=== PATIENT | male | born 1975 | race Two or more races ===

== ENCOUNTER 2019-05-15 15:40 | Inpatient (IN) | payer MEDICARE, MEDICAID ==
[~2019-05-15] VITALS: Ht 167.6 cm; Wt 65.8 kg
[2019-05-15] MEDS ORDERED: UNOBMED (15:49)
[2019-05-15 15:50] VITALS: BP 129/61
--- NOTE | 2019-05-15 15:50 | NUR ---
ED Nurse Note: pt presents to ED c/o 05/10 lower abd pain that pt reports is worse in the RLQ. pt goes to dialysis every M, W, F and states that he has had no complications completing the procedures. pt reports having a fever of 103.2 yesterday at his 's office. pt reports the pain happening last PM with N/V, pt is unsure how many episodes of vomiting he had. Pt has had a total gastrectomy and jeny. pt is writhing in pain but able to maintain airway and breathing. lung sounds sound clear in all solares and bowel sounds are present in all 4 quadrants Addendum: 05/15/19 at 1635 by JUNG pt reports clear/yellow fluid when he vomits and that he takes dilaudid daily.
--- NOTE | 2019-05-15 16:00 | NUR ---
ED Nurse Note: pt is also c/o R hand pain without any injury to it. pt states that he usually takes 300 mg of gabapentin for it but that it hasn't helped with the pain.
--- NOTE | 2019-05-15 16:10 | NUR ---
ED Nurse Note: ERMCynthia Jain inserted a 20 gauage R EJ IV on pt. pt tolerated procedure well, line is patent and secured
[2019-05-15] MEDS ORDERED: Omnipaque-300 100ml vial INJ PRN (16:15)
[2019-05-15] MEDS ORDERED: HYDROmorphone 1mg/ml Carpuject IVP ONE ×2 (16:15→18:30)
--- NOTE | 2019-05-15 16:20 | Emergency Room Report ---
History of Present Illness General Chief Complaint: Abdominal Pain Source: Patient Present Illness HPI Disclaimer: Please note that this report is being documented using [email or web address] technology. This can lead to erroneous entry secondary to incorrect interpretation by the dictating instrument. HPI: 44-year-old male with history of ESRD on hemodialysis MWF, gastroparesis status post partial gastrectomy presents for evaluation of abdominal pain. Patient states he has had several episodes of persistent postprandial emesis starting yesterday afternoon. He has felt fevers and chills and had a temperature of 103 degrees at his PMDs office earlier today. He was sent over for evaluation. He is reporting lower quadrant pain that is periumbilical, suprapubic and right lower quadrant. Denies any recent diarrhea. Makes a small amount of urine but denies hematuria or dysuria. Denies flank pain. Denies chest pain, shortness of breath or cough. PMH: ESRD, gastroparesis PSH: Cholecystectomy, partial gastrectomy Allergies: Morphine Social Hx: Denies drug or alcohol abuse Allergies: Coded Allergies: MORPHINE (Verified Allergy, Unknown, 05/15/19) Nursing Documentation-PMH Hx Cardiac Problems: No - MWF dialysis Hx Hypertension: Yes Review of Systems All Other Systems: negative except mentioned in HPI Physical Exam Vital Signs Date Time Temp Pulse Resp B/P (MAP) Pulse Ox O2 Delivery O2 Flow Rate FiO2 05/15/19 15:44 99.9 95 18 129/61 (83) 98 Room Air General: Awake and alert, appears uncomfortable HEENT: NC/AT. EOMI. Neck: Supple, trachea midline Chest Wall: No tenderness, no deformity Cardiovascular: RRR. S1 and S2 normal. No murmur appreciated. Fistula with palpable thrill in the right thigh Resp: Normal work of breathing. No cough, wheezing or crackles appreciated Abdomen: Abdomen is soft, nondistended. There is tenderness in the periumbilical region, suprapubic region, right lower quadrant. No rebound. No masses. Upper quadrants and epigastrium are nontender. Skin: Intact. No abrasions, laceration or rash over the exposed skin MSK: Normal tone and bulk. Moving all extremities. No obvious deformity. Neuro: Awake and alert. Mentating appropriately. Medical Decision Making Diagnostic Impression: Primary Impression: Constipation Additional Impressions: Persistent vomiting Colitis ER Course 44-year-old male presents for evaluation of fevers and abdominal pain with vomiting beginning last night. Differential includes but is not limited to appendicitis, bowel obstruction, pancreatitis, gastroenteritis, gastritis, inflammatory bowel disease, urinary tract infection, pyelonephritis. Patient is uncomfortable appearing. He had hemodialysis yesterday and completed a full course. Will require IV contrast and oral contrast given his bowel altering surgery. Biggest concern is for appendicitis at this point. We will start broad metabolic and infectious work-up. Laboratory Tests Test 05/15/19 16:27 05/15/19 16:40 White Blood Count 5.4 K/UL (4.8-10.8) Red Blood Count 3.92 M/UL (4.70-6.10) L Hemoglobin 11.1 G/DL (14.2-18.0) L Hematocrit 35.3 % (42.0-52.0) L Mean Corpuscular Volume 90 FL (80-99) Mean Corpuscular Hemoglobin 28.3 PG (27.0-31.0) Mean Corpuscular Hemoglobin Concent 31.4 G/DL (32.0-36.0) L Red Cell Distribution Width 14.3 % (11.6-14.8) Platelet Count 162 K/UL (150-450) Mean Platelet Volume 6.6 FL (6.5-10.1) Neutrophils (%) (Auto) 82.4 % (45.0-75.0) H Lymphocytes (%) (Auto) 9.2 % (20.0-45.0) L Monocytes (%) (Auto) 4.9 % (1.0-10.0) Eosinophils (%) (Auto) 2.5 % (0.0-3.0) Basophils (%) (Auto) 1.0 % (0.0-2.0) Prothrombin Time 11.6 SEC (9.30-11.50) H Prothrombin Time INR 1.1 (0.9-1.1) PTT 32 SEC (23-33) Sodium Level 138 MMOL/L (136-145) Potassium Level 5.4 MMOL/L (3.5-5.1) H Chloride Level 99 MMOL/L (98-107) Carbon Dioxide Level 28 MMOL/L (21-32) Anion Gap 11 mmol/L (5-15) Blood Urea Nitrogen 34 mg/dL (7-18) H Creatinine 6.4 MG/DL (0.55-1.30) H Estimate Glomerular Filtration Rate 9.5 mL/min (>60) Glucose Level 218 MG/DL (74-106) H Calcium Level 7.4 MG/DL (8.5-10.1) L Total Bilirubin 0.7 MG/DL (0.2-1.0) Aspartate Amino Transferase (AST) 32 U/L (15-37) Alanine Aminotransferase (ALT) 24 U/L (12-78) Alkaline Phosphatase 219 U/L (46-116) H Total Protein 7.8 G/DL (6.4-8.2) Albumin 3.0 G/DL (3.4-5.0) L Globulin 4.8 g/dL Albumin/Globulin Ratio 0.6 (1.0-2.7) L Lipase 19 U/L (73-393) L Lactic Acid Level 1.30 mmol/L (0.4-2.0) EKG Diagnostic Results EKG Time: 17:48 Rate: tachycardiac ST Segments: no acute changes Other Impression Sinus tachycardia, normal axis, slightly long QTC at 482 ms. RSR prime pattern consistent with right bundle branch block. No prior for comparison Rhythm Strip Diag. Results Rhythm Strip Time: 17:48 EP Interpretation: yes Rate: 100s Rhythm: NSR, no PVC's, no ectopy CT/MRI/US Diagnostic Results CT/MRI/US Diagnostic Results : Impression Preliminary Findings Only See Final Report For Complete Findings CT ABDOMEN & PELVIS With Contrast: Large amount of stool in the rectum with some mild infiltration suspected of the perirectal fat. Stercoral colitis should be considered. Fluid is seen in the more proximal colon. Question of some wall thickening of the bladder. Cystitis cannot be excluded. Correlation with clinical and laboratory findings is recommended. No free intraperitoneal fluid or free intraperitoneal gas. Probable mild atelectasis at the lung bases. Evaluation of the bowel is limited secondary to no by mouth contrast and secondary to minimal intraperitoneal fat. No evidence for significant bowel loop dilation. Extensive vascular atherosclerotic calcifications. Some nonspecific periportal edema is suspected. Biliary stents are noted. Status post cholecystectomy. There is some prominence of the spleen. The pancreas is not well-visualized and is likely atrophic. Small low-density lesions in the kidneys which are too small to adequately characterize. The intra-abdominal organs are otherwise unremarkable. Status post surgical changes of the stomach. Degenerative changes of the thoracolumbar spine. Some sclerosis is suspected of the bones which may be related to renal osteodystrophy. Multiple collateral vessels in the subcutaneous tissues along the anterior aspect of the abdomen. Radiologist: Angelo Sheffield M.D. Reevaluation Time: 20:28 Last Vital Signs Date Time Temp Pulse Resp B/P (MAP) Pulse Ox O2 Delivery O2 Flow Rate FiO2 05/15/19 15:44 99.9 95 18 129/61 (83) 98 Room Air Status: unchanged Reevaluation Impression Patient has had persistent episodes of vomiting while in the emergency department despite IV fluids and antiemetics. His CT scan shows significant stool burden and signs of colitis which could represent overflow diarrhea. There is no evidence of bowel loop dilation to suggest acute obstruction. No evidence of acute appendicitis. Patient will require bowel cleanout, continued IV fluids and further treatment and management of his vomiting. He has had several episodes of diarrhea while in the emergency department as well. He will be admitted to the hospital for further treatment. Disposition: ADMITTED INPATIENT Condition: Serious Ki Jain MD May 15, 2019 16:20
[2019-05-15 16:56] VITALS: BP 160/86
[2019-05-15 16:59] VITALS: BP 119/60
[2019-05-15 17:02] LABS: EOSINOPHILS % (AUTO) 2.5 % (0.0-3.0); HEMATOCRIT 35.3 % (42.0-52.0); HEMOGLOBIN 11.1 G/DL (14.2-18.0); LYMPHOCYTES % (AUTO) 9.2 % (20.0-45.0); MEAN CORPUSCULAR VOLUME 90 FL (80-99); MONOCYTES % (AUTO) 4.9 % (1.0-10.0); NEUTROPHILS % (AUTO) 82.4 % (45.0-75.0); PLATELET COUNT 162 K/UL (150-450); RED BLOOD COUNT 3.92 M/UL (4.70-6.10); RED CELL DISTRIBUTION WIDTH 14.3 % (11.6-14.8); WHITE BLOOD COUNT 5.4 K/UL (4.8-10.8)
[2019-05-15 17:03] LABS: INR 1.1 (0.9-1.1)
[2019-05-15 17:07] LABS: ANION GAP 11 mmol/L (5-15); BLOOD UREA NITROGEN 34 mg/dL (7-18); CALCIUM 7.4 MG/DL (8.5-10.1); CARBON DIOXIDE 28 MMOL/L (21-32); CHLORIDE 99 MMOL/L (98-107); CREATININE 6.4 MG/DL (0.55-1.30); POTASSIUM 5.4 MMOL/L (3.5-5.1); SODIUM 138 MMOL/L (136-145)
[2019-05-15 17:11] LABS: ALANINE AMINOTRANSFERASE 24 U/L (12-78); ALBUMIN/GLOBULIN RATIO 0.6 (1.0-2.7); ALKALINE PHOSPHATASE 219 U/L (46-116); ASPARTATE AMINO TRANSFERASE 32 U/L (15-37); BILIRUBIN,TOTAL 0.7 MG/DL (0.2-1.0)
--- NOTE | 2019-05-15 17:30 | NUR ---
ED Nurse Note: pt transported to CT via gurney. he is in no acute distress and appears to be stable
--- NOTE | 2019-05-15 18:18 | NUR ---
ED Nurse Note: pt has returned from CT. his vital signs are HR: 97, RR: 18, SpO2: 99%, BP: 116/55. pt reports his nausea and pain are back, will let ERMD know
--- NOTE | 2019-05-15 18:33 | NUR ---
ED Nurse Note: pt had one episode of vomiting 5 minutes after administration of ondansetron and dilaudid. it appeared to be food. pt asked to use the restroom for a BM which is his second time since being in the ED. pt is using the bedside commode
--- NOTE | 2019-05-15 19:20 | NUR ---
ED Nurse Note: Got report from FRANCISCO Hein. Patient has right EJ on place, but it does not work. Right EJ was DC and left upper chest IV access was established.
--- NOTE | 2019-05-15 19:44 | Diagnostic Imaging Report ---
Clinical Indication: Lower abdominal pain worse in the right lower quadrant, fever, nausea vomiting Technique: No oral contrast utilized, per emergency room physician request IV administration nonionic contrast. Venous phase spiral acquisition obtained through the abdomen and pelvis. Multiplanar reconstructions were generated. Total dose length product 902 mGycm. CTDIvol(s) 15 mGy. Dose reduction achieved using automated exposure control Comparison: none Findings: The rectum is distended with stool, measures 7.3 cm transverse diameter. There is mild proximal rectal wall thickening. The sigmoid colon is mildly distended with stool, demonstrates mild wall thickening and absence of normal haustration. The proximal sigmoid is fluid-filled. The remainder of the colon is upper limits of normal in caliber, gas and fluid-filled. The appendix is normal. No small bowel distention. A extensive postsurgical changes of the stomach are noted, with evidence of distal gastrectomy and gastrojejunostomy. In the distal esophagus is unremarkable. There is a small amount of free intraperitoneal fluid over the dome of the liver. There is no evidence of diverticulosis or diverticulitis. There is evidence of prior cholecystectomy. Parallel plastic stents are seen within the common bile duct. There is mild periportal edema. The liver, spleen, adrenals are unremarkable. The kidneys are somewhat atrophic and hypoperfused. No retroperitoneal or mesenteric mass or adenopathy. No pelvic mass or adenopathy. The bladder wall is somewhat thickened A stent is seen within the right external iliac vein. It appears to be patent. Numerous superficial collateral veins are noted in the abdominal and pelvic wall and lower chest wall. The included lung bases demonstrate nodular and groundglass opacities. The bones demonstrate diffuse increased medullary attenuation. Impression: Distended stool-filled rectum, concerning for rectal fecal impaction. Stool filled featureless sigmoid colon, could indicate colitis/proctitis. But filled proximal colon, could indicate diarrheal illness Mild bladder wall thickening, could indicate cystitis Post surgical changes of the stomach Endobiliary stents. No definite ductal dilatation. Prior cholecystectomy Atrophic kidneys, consistent with medical renal disease Trace free intraperitoneal fluid. Evidence of prior stenting of the right iliac vein. This appears to be patent Chest and abdominal and pelvic wall varices, likely indicating central venoocclusive disease Basilar pulmonary parenchymal groundglass and nodular opacities, nonspecific, could indicate focal infiltrates. Correlate with clinical findings Periportal edema, nonspecific, could indicate right heart failure or hepatitis Osteosclerosis, likely on the basis of renal osteodystrophy This agrees with the preliminary interpretation provided overnight by [facility] teleradiology service. The CT scanner at [facility] is accredited by the [employer] and the scans are performed using protocols designed to limit radiation exposure to as low as reasonably achievable to attain images of sufficient resolution adequate for diagnostic evaluation.
[2019-05-15] MEDS ORDERED: Metoclopramide 10mg/2ml Inj IVP ONE (20:00)
[2019-05-15] MEDS ORDERED: DiphenhydrAMINE 50mg/ml Inj IVP ONE (20:00)
--- NOTE | 2019-05-15 21:30 | NUR ---
ED Nurse Note: REPORT GIVEN TO RN QUOC FROM TELE.
--- NOTE | 2019-05-15 21:40 | NUR ---
NURSE NOTES: Received report from Jeet Daugherty RN. regarding patient's arrival to TELE floor from ED. Arrived via gurney and ambulated to bed with minimal assistance form staff. Belongings checked and noted, head to toe assessment initiated with noted Right knee wound. IV line intact and patent, on continuous cardiac monitoring per protocol. Patient ambulates to the bathroom with minimal assistance. Safety precaution in place; siderails X2 up, call light within reach, bed in lowest position, brakes and alarm on at all times. Needs and wants anticipated and attended, will continue plan of care and monitor for any changes noted. MD notified regarding patient's arrival on the floor. Awaiting call-back for admit orders
[2019-05-15 21:49] VITALS: BP 119/60
--- NOTE | 2019-05-15 21:49 | NUR ---
ED Nurse Note: Patient was admited to Tele due to severe abdominal pain, N/V/D. Patient was transfered to the unit via girney by ACLS protocol, with all belongings. Patient AAO x4, VSS at this time, skin is warm to touch.
[2019-05-15 22:00] VITALS: BP 101/59
[2019-05-15] MEDS ORDERED: DILAUDID 22 MG/1 M2 IJ (23:12)
[2019-05-15] MEDS ORDERED: CATAPRES0.1 MG ORAL (23:12)
[2019-05-15] MEDS ORDERED: CALCIUM ACETAT667 M1 PO (23:12)
[2019-05-15] MEDS ORDERED: SENSIPAR30 MG ORAL (23:12)
[2019-05-15] MEDS ORDERED: NOVOLIN R100 UNIT/1 SUBQ (23:12)
[2019-05-15] MEDS ORDERED: METOPROLOL TAR100 M1 ORAL (23:12)
[2019-05-15] MEDS ORDERED: BENADRYL25 MG ORAL (23:12)
[2019-05-16] VITALS: BP 113/61
--- NOTE | 2019-05-16 01:30 | NUR ---
NURSE NOTES: Orders received and carried out per Al. . Will continue plan of care and monitor for any changes noted.
--- NOTE | 2019-05-16 02:47 | NUR ---
NURSE NOTES: Patient in bed asleep with no S/S of distress. Will continue plan of care.
[2019-05-16 04:00] VITALS: BP 138/76
[2019-05-16] MEDS: Calcium Acetate 667mg Tab ORAL SCH ×3 (06:26→15:14)
[2019-05-16] MEDS: NovoLOG Insulin Flexpen SUBQ SCH ×4 (06:31→20:43)
[2019-05-16] MEDS: HYDROmorphone 2mg tab ORAL PRN ×4 (06:52→20:42)
[2019-05-16] MEDS: DiphenhydrAMINE 50mg/ml Inj IVP PRN ×2 (06:53→11:03)
--- NOTE | 2019-05-16 07:46 | NUR ---
HAND-OFF: Report given to Armando Jernigan RN. Patient in bed AAO X4 with no S/S of distress. Endorsed plan of care. Al notified for N/V medication per patient request.
--- NOTE | 2019-05-16 07:46 | NUR ---
NURSE NOTES: Nurse report given by FRANCISCO Mason. Patient's eating breakfast at the side of the bed. Denies pain, denies nausea/vomiting, AO x 4, no s/s of distress or SOB. Bed low and locked, side rails x 2. IV is saline locked, patent and asymptomatic. Will continue to monitor.
[2019-05-16 08:00] VITALS: BP 151/71
[2019-05-16 08:49] LABS: BASOPHILS % (AUTO) 0.8 % (0.0-2.0); EOSINOPHILS % (AUTO) 3.2 % (0.0-3.0); HEMATOCRIT 31.1 % (42.0-52.0); HEMOGLOBIN 9.6 G/DL (14.2-18.0); LYMPHOCYTES % (AUTO) 15.4 % (20.0-45.0); MEAN CORPUSCULAR VOLUME 91 FL (80-99); MONOCYTES % (AUTO) 5.8 % (1.0-10.0); NEUTROPHILS % (AUTO) 74.8 % (45.0-75.0); PLATELET COUNT 160 K/UL (150-450); RED BLOOD COUNT 3.43 M/UL (4.70-6.10); RED CELL DISTRIBUTION WIDTH 15.4 % (11.6-14.8); WHITE BLOOD COUNT 6.6 K/UL (4.8-10.8)
[2019-05-16 09:13] LABS: ANION GAP 9 mmol/L (5-15); BLOOD UREA NITROGEN 44 mg/dL (7-18); CALCIUM 6.9 MG/DL (8.5-10.1); CARBON DIOXIDE 25 MMOL/L (21-32); CHLORIDE 101 MMOL/L (98-107); CREATININE 7.3 MG/DL (0.55-1.30); PHOSPHORUS 5.4 MG/DL (2.5-4.9); POTASSIUM 4.5 MMOL/L (3.5-5.1); SODIUM 135 MMOL/L (136-145)
--- NOTE | 2019-05-16 09:30 | NUR ---
*-* NO INSURANCE INFORMATION IN THE BAR UNABLE TO SEND CLINICALS OR REVIEWS *-*
--- NOTE | 2019-05-16 09:52 | NUR ---
NURSE NOTES: Left message to Dr. Melendez regarding about patient's dialysis status whether the patient's getting dialysis today or not. Nurse also updated doctor regarding patient's lab results. Awaiting for response.
--- NOTE | 2019-05-16 11:30 | NUR ---
NURSE NOTES: Contacted Dr. Hill Mccallum regarding to patient's rhythm strip that the patient's having multiple episodes of Trigeminy. Doctor acknowledge and there is no new order at this time.
--- NOTE | 2019-05-16 11:41 | Consultation ---
History of Present Illness General Date patient seen: May 16, 2019 Chief Complaint: Abdominal Pain Present Illness HPI 44-year-old male with history of DM, HTN, ESRD on hemodialysis MWF, status post partial gastrectomy with gastroparesis presented to ER with CC of abdominal pain and postprandial emesis starting yesterday afternoon. He has felt fevers and chills and had a temperature of 103 degrees. He is admitted for further management. Allergies: Coded Allergies: MORPHINE (Verified Allergy, Unknown, 05/15/19) Medication History Scheduled Calcium Acetate (Calcium Acetate), 667 MG PO DAILY, (Reported) Cinacalcet* (Sensipar*), 30 MG ORAL BID, (Reported) Clonidine Hcl* (Catapres*), 0.1 MG ORAL EVERY 6 HOURS, (Reported) Insulin Regular, Human* (Novolin R*), 0 SUBQ .SLIDING SCALE, (Reported) Metoprolol Tartrate* (Metoprolol Tartrate*), 100 MG ORAL DAILY, (Reported) Scheduled PRN Diphenhydramine Hcl* (Benadryl*), 50 MG ORAL Q6H PRN for Itching, (Reported) Miscellaneous Medications Hydromorphone HCl/Pf (Dilaudid 2 mg/ml Syringe), 2 MG IJ, (Reported) Unable to Obtain Medications (Unable To Obtain Meds), (Reported) Patient History Healthcare decision maker Resuscitation status Full Code Advanced Directive on File Past Medical/Surgical History Past Medical/Surgical History: (1) Diabetes mellitus (2) History of hypertension (3) ESRF (end stage renal failure) (4) S/P partial gastrectomy Review of Systems All Other Systems: negative except mentioned in HPI Physical Exam General Appearance: WD/WN, no apparent distress Lines, tubes and drains: peripheral HEENT: normocephalic, atraumatic Neck: non-tender, normal alignment Respiratory/Chest: chest wall non-tender, lungs clear Breasts: no masses Cardiovascular/Chest: normal peripheral pulses Abdomen: normal bowel sounds, non tender Genitourinary/Rectal: normal genital exam, normal rectal exam Extremities: normal range of motion, non-tender Skin Exam: normal pigmentation 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 Last 24 Hour Vital Signs Date Time Temp Pulse Resp B/P (MAP) Pulse Ox O2 Delivery O2 Flow Rate FiO2 05/16/19 09:23 79 151/71 05/16/19 09:00 Room Air 05/16/19 08:00 98.7 79 20 151/71 (97) 98 05/16/19 08:00 79 05/16/19 04:00 72 05/16/19 04:00 98.3 72 20 138/76 (96) 97 05/16/19 00:00 74 05/16/19 00:00 98.5 86 18 113/61 (78) 97 05/15/19 23:15 Room Air 05/15/19 22:00 99.1 84 18 101/59 (73) 98 05/15/19 22:00 81 05/15/19 21:49 99.9 20 119/60 92 Room Air 05/15/19 21:49 99.9 20 119/60 92 Room Air 05/15/19 18:56 99.9 05/15/19 16:59 119/60 05/15/19 16:56 99.9 20 160/86 92 Room Air 05/15/19 16:50 99.9 05/15/19 15:50 95 18 Room Air 05/15/19 15:50 99.9 18 129/61 98 Room Air 05/15/19 15:44 99.9 95 18 129/61 (83) 98 Room Air Intake and Output 05/15/19 05/16/19 18:59 06:59 Intake Total 240 ml Balance 240 ml Intake Oral 240 ml # Voids 2 # Bowel Movements 2 2 Laboratory Tests Test 05/15/19 16:27 05/15/19 16:40 05/16/19 08:25 White Blood Count 5.4 K/UL (4.8-10.8) 6.6 K/UL (4.8-10.8) Red Blood Count 3.92 M/UL (4.70-6.10) L 3.43 M/UL (4.70-6.10) L Hemoglobin 11.1 G/DL (14.2-18.0) L 9.6 G/DL (14.2-18.0) L Hematocrit 35.3 % (42.0-52.0) L 31.1 % (42.0-52.0) L Mean Corpuscular Volume 90 FL (80-99) 91 FL (80-99) Mean Corpuscular Hemoglobin 28.3 PG (27.0-31.0) 28.0 PG (27.0-31.0) Mean Corpuscular Hemoglobin Concent 31.4 G/DL (32.0-36.0) L 30.9 G/DL (32.0-36.0) L Red Cell Distribution Width 14.3 % (11.6-14.8) 15.4 % (11.6-14.8) H Platelet Count 162 K/UL (150-450) 160 K/UL (150-450) Mean Platelet Volume 6.6 FL (6.5-10.1) 5.9 FL (6.5-10.1) L Neutrophils (%) (Auto) 82.4 % (45.0-75.0) H 74.8 % (45.0-75.0) Lymphocytes (%) (Auto) 9.2 % (20.0-45.0) L 15.4 % (20.0-45.0) L Monocytes (%) (Auto) 4.9 % (1.0-10.0) 5.8 % (1.0-10.0) Eosinophils (%) (Auto) 2.5 % (0.0-3.0) 3.2 % (0.0-3.0) H Basophils (%) (Auto) 1.0 % (0.0-2.0) 0.8 % (0.0-2.0) Prothrombin Time 11.6 SEC (9.30-11.50) H Prothromb Time International Ratio 1.1 (0.9-1.1) Activated Partial Thromboplast Time 32 SEC (23-33) Sodium Level 138 MMOL/L (136-145) 135 MMOL/L (136-145) L Potassium Level 5.4 MMOL/L (3.5-5.1) H 4.5 MMOL/L (3.5-5.1) Chloride Level 99 MMOL/L (98-107) 101 MMOL/L (98-107) Carbon Dioxide Level 28 MMOL/L (21-32) 25 MMOL/L (21-32) Anion Gap 11 mmol/L (5-15) 9 mmol/L (5-15) Blood Urea Nitrogen 34 mg/dL (7-18) H 44 mg/dL (7-18) H Creatinine 6.4 MG/DL (0.55-1.30) H 7.3 MG/DL (0.55-1.30) H Estimat Glomerular Filtration Rate 9.5 mL/min (>60) 8.1 mL/min (>60) Glucose Level 218 MG/DL (74-106) H 141 MG/DL (74-106) H Calcium Level 7.4 MG/DL (8.5-10.1) L 6.9 MG/DL (8.5-10.1) L Total Bilirubin 0.7 MG/DL (0.2-1.0) Aspartate Amino Transf (AST/SGOT) 32 U/L (15-37) Alanine Aminotransferase (ALT/SGPT) 24 U/L (12-78) Alkaline Phosphatase 219 U/L (46-116) H Total Protein 7.8 G/DL (6.4-8.2) Albumin 3.0 G/DL (3.4-5.0) L Globulin 4.8 g/dL Albumin/Globulin Ratio 0.6 (1.0-2.7) L Lipase 19 U/L (73-393) L Lactic Acid Level 1.30 mmol/L (0.4-2.0) Phosphorus Level 5.4 MG/DL (2.5-4.9) H Magnesium Level 1.9 MG/DL (1.8-2.4) Microbiology Date/Time Source Procedure Growth Status 05/15/19 23:30 Rectum Received Height (Feet): 5 Height (Inches): 6.00 Weight (Pounds): 147 Medications Current Medications Medications (Trade) Dose Ordered Sig/Marie Route PRN Reason Start Time Stop Time Status Last Admin Dose Admin Calcium Acetate (Phoslo) 667 mg DAILY ORAL 05/17/19 09:00 06/16/19 08:59 UNV Calcium Acetate (Phoslo) 667 mg TIAC ORAL 05/16/19 06:30 06/15/19 06:29 05/16/19 11:02 Cinacalcet (Sensipar) 30 mg BID ORAL 05/16/19 18:00 06/15/19 17:59 UNV Clonidine HCl (Catapres Tab) 0.1 mg EVERY 6 HOURS ORAL 05/16/19 12:00 06/15/19 11:59 UNV Clonidine HCl (Catapres Tab) 0.1 mg Q4H PRN ORAL For High Blood Pressure 05/16/19 01:15 06/15/19 01:14 Dextrose (Dextrose 50%) 25 ml Q30M PRN IV Hypoglycemia 05/16/19 01:15 06/15/19 01:14 Dextrose (Dextrose 50%) 50 ml Q30M PRN IV Hypoglycemia 05/16/19 01:15 06/15/19 01:14 Diphenhydramine HCl (Benadryl) 25 mg Q4H PRN IVP Itching 05/16/19 01:15 06/15/19 01:14 05/16/19 11:03 Hydromorphone HCl (Dilaudid) 2 mg Q4H PRN ORAL For Pain 05/16/19 01:15 05/23/19 01:14 05/16/19 11:03 Insulin Aspart (NovoLOG) BEFORE MEALS AND HS SUBQ 05/16/19 06:30 06/15/19 06:29 05/16/19 06:31 Iohexol (OMNIPAQUE-300 100ml) 100 ml NOW PRN INJ Radiology Procedure 05/15/19 16:15 05/17/19 16:12 Metoprolol Tartrate (Lopressor) 100 mg DAILY ORAL 05/17/19 09:00 06/16/19 08:59 UNV Metoprolol Tartrate (Lopressor) 100 mg EVERY 12 HOURS ORAL 05/16/19 09:00 06/15/19 08:59 05/16/19 09:23 Ondansetron HCl (Zofran ODT) 4 mg Q4H PRN ORAL Nausea & Vomiting 05/16/19 08:30 06/15/19 08:29 Assessment/Plan Problem List: (1) Persistent vomiting ICD Codes: R11.15 - Cyclical vomiting syndrome unrelated to migraine SNOMED: 400625056 (2) Low grade fever ICD Codes: R50.9 - Fever, unspecified SNOMED: 247207952 (3) Colitis ICD Codes: K52.9 - Noninfective gastroenteritis and colitis, unspecified SNOMED: 14310933 (4) Constipation ICD Codes: K59.00 - Constipation, unspecified SNOMED: 66590768 (5) ESRF (end stage renal failure) ICD Codes: N18.6 - End stage renal disease SNOMED: 91586363 (6) Diabetes mellitus ICD Codes: E11.9 - Type 2 diabetes mellitus without complications SNOMED: 55717112 (7) History of hypertension ICD Codes: Z86.79 - Personal history of other diseases of the circulatory system SNOMED: 221600391 (8) S/P partial gastrectomy ICD Codes: Z90.3 - Acquired absence of stomach [part of] SNOMED: 67391068, 67102077, 261961377016903 Assessment/Plan: nichole cultures symptomatic treatment iv abx Renal to arrange for HD resume most of home meds monitor BP CT abdomen showed bibasilar pulmonary nodules,will get a CXR get Echo for abnormal EKG, cardiology to see Cristobal Ordonez MD May 16, 2019 11:41
[2019-05-16] MEDS ORDERED: Fleet's Mineral Oil Enema RECTAL SCH ×2 (11:45→12:45)
[2019-05-16 12:00] VITALS: BP 104/56
[2019-05-16] MEDS ORDERED: DiphenhydrAMINE 50mg/ml Inj IVP SCH (12:30)
[2019-05-16] MEDS ORDERED: Metoclopramide 10mg/2ml Inj IVP PRN (12:33)
[2019-05-16] MEDS ORDERED: Mineral Oil 30ml ud ORAL SCH (12:45)
[2019-05-16] MEDS ORDERED: DiphenhydrAMINE 50mg/ml Inj IVP PRN (12:45)
[2019-05-16] MEDS ORDERED: Mineral Oil 30ml ud ORAL PRN (12:45)
--- NOTE | 2019-05-16 12:47 | Consultation ---
Consult Note Consult Note asked to eval patient for dialysis management interviewed examined data reviewed patient being dialysed in [facility] Fr was visiting PMD Dr Melendez yesterday had fever, abd pain and vomiting send to ER ER: HPI: 44-year-old male with history of ESRD on hemodialysis MWF, gastroparesis status post partial gastrectomy presents for evaluation of abdominal pain. Patient states he has had several episodes of persistent postprandial emesis starting yesterday afternoon. He has felt fevers and chills and had a temperature of 103 degrees at his PMDs office earlier today. He was sent over for evaluation. He is reporting lower quadrant pain that is periumbilical, suprapubic and right lower quadrant. Denies any recent diarrhea. Makes a small amount of urine but denies hematuria or dysuria. Denies flank pain. Denies chest pain, shortness of breath or cough. PMH: ESRD, gastroparesis PSH: Cholecystectomy, partial gastrectomy Allergies: Morphine Social Hx: Denies drug or alcohol abuse Allergies: MORPHINE (Verified Allergy, Unknown, 05/15/19) Hx Cardiac Problems: No - MWF dialysis Hx Hypertension: Yes Assessment/Plan ESRD HTN DM Anemia HD today Per GI BP and BS check Chito Leal MD May 16, 2019 12:47
--- NOTE | 2019-05-16 13:26 | GI Initial Consult Note ---
History of Present Illness General Date patient seen: May 16, 2019 Time patient seen: 13:20 Reason for Hospitalization: Abdominal Pain Referring physician: VALERIO HAMILTON Reason for Consultation: FECAL IMPACATION Present Illness HPI 44-year-old male with history of ESRD on hemodialysis MWF, gastroparesis status post partial gastrectomy presents for evaluation of abdominal pain. Patient states he has had several episodes of persistent postprandial emesis starting yesterday afternoon. He has felt fevers and chills and had a temperature of 103 degrees at his PMDs office earlier today. He was sent over for evaluation. He is reporting lower quadrant pain that is periumbilical, suprapubic and right lower quadrant. Denies any recent diarrhea. Makes a small amount of urine but denies hematuria or dysuria. Denies flank pain. Denies chest pain, shortness of breath or cough. GI consulted for reported fecal impaction is seen on abdominal pelvic CT. Patient seen, awake alert oriented x4 no apparent distress. No active signs and symptoms of nausea vomiting. The patient previously reported constipation, however had a bowel movement this morning. Patient still express that he feels constipated. Patient has no history of endoscopic or colonoscopy. Labs reviewed; hemoglobin 9.6, hematocrit 31.1. Home Meds Reported Medications Insulin Regular, Human* (NOVOLIN R*) 100 Unit/1 Ml Vial, 0 SUBQ .SLIDING SCALE, UNITS 05/15/19 Hydromorphone HCl/Pf (Dilaudid 2 mg/ml Syringe) 2 Mg/1 Ml Syringe, 2 MG IJ 05/15/19 Cinacalcet* (SENSIPAR*) 30 Mg Tablet, 30 MG ORAL BID, TAB 05/15/19 Calcium Acetate (CALCIUM ACETATE) 667 Mg Capsule, 667 MG PO DAILY, CAP 05/15/19 Diphenhydramine Hcl* (BENADRYL*) 25 Mg Capsule, 50 MG ORAL Q6H PRN for Itching, CAP 05/15/19 Clonidine Hcl* (CATAPRES*) 0.1 Mg Tablet, 0.1 MG ORAL EVERY 6 HOURS, TAB 05/15/19 Metoprolol Tartrate* (METOPROLOL TARTRATE*) 100 Mg Tablet, 100 MG ORAL DAILY, TAB 05/15/19 Unable to Obtain Medications (UNABLE TO OBTAIN MEDS) 1 Ea Ea 05/15/19 Med list reviewed/reconciled: Yes Allergies: Coded Allergies: MORPHINE (Verified Allergy, Unknown, 05/15/19) Patient History History Provided By: Patient, Medical Record PMH Narrative PMH: ESRD, gastroparesis PSH: Cholecystectomy, partial gastrectomy Allergies: Morphine Social Hx: Denies drug or alcohol abuse Allergies: Coded Allergies: MORPHINE (Verified Allergy, Unknown, 05/15/19) Nursing Documentation-PMH Hx Cardiac Problems: No - MWF dialysis Hx Hypertension: Yes Social History: Denies: smoking, alcohol use, drug use, other Review of Systems All Other Systems: negative except mentioned in HPI Physical Exam Vital Signs Date Time Temp Pulse Resp B/P (MAP) Pulse Ox O2 Delivery O2 Flow Rate FiO2 05/15/19 15:44 99.9 95 18 129/61 (83) 98 Room Air Sp02 EP Interpretation: reviewed, normal Labs Laboratory Tests Test 05/15/19 16:27 05/15/19 16:40 05/16/19 08:25 White Blood Count 5.4 K/UL (4.8-10.8) 6.6 K/UL (4.8-10.8) Red Blood Count 3.92 M/UL (4.70-6.10) L 3.43 M/UL (4.70-6.10) L Hemoglobin 11.1 G/DL (14.2-18.0) L 9.6 G/DL (14.2-18.0) L Hematocrit 35.3 % (42.0-52.0) L 31.1 % (42.0-52.0) L Mean Corpuscular Volume 90 FL (80-99) 91 FL (80-99) Mean Corpuscular Hemoglobin 28.3 PG (27.0-31.0) 28.0 PG (27.0-31.0) Mean Corpuscular Hemoglobin Concent 31.4 G/DL (32.0-36.0) L 30.9 G/DL (32.0-36.0) L Red Cell Distribution Width 14.3 % (11.6-14.8) 15.4 % (11.6-14.8) H Platelet Count 162 K/UL (150-450) 160 K/UL (150-450) Mean Platelet Volume 6.6 FL (6.5-10.1) 5.9 FL (6.5-10.1) L Neutrophils (%) (Auto) 82.4 % (45.0-75.0) H 74.8 % (45.0-75.0) Lymphocytes (%) (Auto) 9.2 % (20.0-45.0) L 15.4 % (20.0-45.0) L Monocytes (%) (Auto) 4.9 % (1.0-10.0) 5.8 % (1.0-10.0) Eosinophils (%) (Auto) 2.5 % (0.0-3.0) 3.2 % (0.0-3.0) H Basophils (%) (Auto) 1.0 % (0.0-2.0) 0.8 % (0.0-2.0) Prothrombin Time 11.6 SEC (9.30-11.50) H Prothromb Time International Ratio 1.1 (0.9-1.1) Activated Partial Thromboplast Time 32 SEC (23-33) Sodium Level 138 MMOL/L (136-145) 135 MMOL/L (136-145) L Potassium Level 5.4 MMOL/L (3.5-5.1) H 4.5 MMOL/L (3.5-5.1) Chloride Level 99 MMOL/L (98-107) 101 MMOL/L (98-107) Carbon Dioxide Level 28 MMOL/L (21-32) 25 MMOL/L (21-32) Anion Gap 11 mmol/L (5-15) 9 mmol/L (5-15) Blood Urea Nitrogen 34 mg/dL (7-18) H 44 mg/dL (7-18) H Creatinine 6.4 MG/DL (0.55-1.30) H 7.3 MG/DL (0.55-1.30) H Estimat Glomerular Filtration Rate 9.5 mL/min (>60) 8.1 mL/min (>60) Glucose Level 218 MG/DL (74-106) H 141 MG/DL (74-106) H Calcium Level 7.4 MG/DL (8.5-10.1) L 6.9 MG/DL (8.5-10.1) L Total Bilirubin 0.7 MG/DL (0.2-1.0) Aspartate Amino Transf (AST/SGOT) 32 U/L (15-37) Alanine Aminotransferase (ALT/SGPT) 24 U/L (12-78) Alkaline Phosphatase 219 U/L (46-116) H Total Protein 7.8 G/DL (6.4-8.2) Albumin 3.0 G/DL (3.4-5.0) L Globulin 4.8 g/dL Albumin/Globulin Ratio 0.6 (1.0-2.7) L Lipase 19 U/L (73-393) L Lactic Acid Level 1.30 mmol/L (0.4-2.0) Phosphorus Level 5.4 MG/DL (2.5-4.9) H Magnesium Level 1.9 MG/DL (1.8-2.4) General Appearance: well appearing, no apparent distress, alert Head: normocephalic EENT: PERRL/EOMI, normal ENT inspection Neck: supple Respiratory: normal breath sounds, no respiratory distress Cardiovascular: normal rate Gastrointestinal: normal inspection, non tender, soft, normal bowel sounds, non -distended Rectal: deferred Genitourinary: deferred Musculoskeletal: normal inspection, back normal Neurologic: normal inspection, alert, oriented x3, responsive Psychiatric: normal inspection, judgement/insight normal, memory normal Skin: normal inspection, normal color, no rash, warm/dry, palpation normal, well hydrated Lymphatic: normal inspection, no adenopathy Current Medications Current Medications Medications (Trade) Dose Ordered Sig/Marie Route PRN Reason Start Time Stop Time Status Last Admin Dose Admin Calcium Acetate (Phoslo) 667 mg TIAC ORAL 05/16/19 06:30 06/15/19 06:29 05/16/19 11:02 Cinacalcet (Sensipar) 30 mg BID ORAL 05/16/19 18:00 06/15/19 17:59 Clonidine HCl (Catapres Tab) 0.1 mg EVERY 6 HOURS ORAL 05/16/19 18:00 06/15/19 11:59 Clonidine HCl (Catapres Tab) 0.1 mg Q4H PRN ORAL For High Blood Pressure 05/16/19 01:15 06/15/19 01:14 Dextrose (Dextrose 50%) 25 ml Q30M PRN IV Hypoglycemia 05/16/19 01:15 06/15/19 01:14 Dextrose (Dextrose 50%) 50 ml Q30M PRN IV Hypoglycemia 05/16/19 01:15 06/15/19 01:14 Diphenhydramine HCl (Benadryl) 25 mg Q4H PRN IVP Itching 05/16/19 01:15 06/15/19 01:14 05/16/19 11:03 Diphenhydramine HCl (Benadryl) 50 mg ONCE PRN IVP DURING HD WHEN PT REQUESTS 05/16/19 12:45 05/16/19 23:59 Hydromorphone HCl (Dilaudid) 2 mg Q4H PRN ORAL For Pain 05/16/19 01:15 05/23/19 01:14 05/16/19 11:03 Insulin Aspart (NovoLOG) BEFORE MEALS AND HS SUBQ 05/16/19 06:30 06/15/19 06:29 05/16/19 11:36 Iohexol (OMNIPAQUE-300 100ml) 100 ml NOW PRN INJ Radiology Procedure 05/15/19 16:15 05/17/19 16:12 Metoclopramide HCl (Reglan) 10 mg Q6H PRN IVP Nausea & Vomiting 05/16/19 12:33 06/15/19 12:32 Metoprolol Tartrate (Lopressor) 100 mg EVERY 12 HOURS ORAL 05/16/19 09:00 06/15/19 08:59 05/16/19 09:23 Mineral Oil (Fleet's Mineral Oil Enema) 133 ml ONCE RECTAL 05/16/19 12:45 05/16/19 14:00 05/16/19 13:02 Mineral Oil (Mineral Oil) 30 ml DAILYPRN PRN ORAL Constipation 05/16/19 12:45 06/15/19 12:44 Mineral Oil (Mineral Oil) 30 ml ONCE ORAL 05/16/19 12:45 05/16/19 14:00 05/16/19 13:02 GI: Plan Problems: (1) Gastroparesis (2) Fecal impaction (3) Constipation (4) Colitis (5) Persistent vomiting (6) Diabetes mellitus Plan Abdominal pelvis CT reviewed Distended stool-filled rectum, concerning for rectal fecal impaction. Stool filled featureless sigmoid colon, could indicate colitis/proctitis. But filled proximal colon, could indicate diarrheal illness. History of partial gastrectomy Medical management for constipation, digital disimpaction if failed. Mineral oil p.o. and enema x1 Start the patient on mineral oil daily Bowel regimen of Colace and MiraLAX Advance to renal diet Zofran as needed We will follow with additional recommendations Discussed with Dr. Lee. Thank you for this patient referral, we will follow. The patient was seen and examined at bedside and all new and available data was reviewed in the patients chart. I agree with the above findings, impression and plan. (Patient seen earlier today. Signature stamp does not reflect patient encounter time.). - MD Dipti [facility] [facility] May 16, 2019 13:26
--- NOTE | 2019-05-16 14:46 | Diagnostic Imaging Report ---
Indication: Dyspnea Technique: One view of the chest Comparison: none Findings: Surgical clips are seen in the left axilla. The lungs and pleural spaces are clear. The heart size is normal Impression: Negative
[2019-05-16 16:00] VITALS: BP 111/60
--- NOTE | 2019-05-16 16:42 | NUR ---
NURSE NOTES: Dialysis was performed on patient and removed 2 liters out. Patient's vital signs are stable and patient tolerated well. Will continue to monitor.
--- NOTE | 2019-05-16 17:00 | History and Physical Report ---
DATE OF ADMISSION: 05/15/2019 CHIEF COMPLAINT: The patient is a 44-year-old male with history of end-stage renal disease, on hemodialysis every Tuesday, Tuesday, Tuesday, presents with chief complaint of nausea, vomiting, abdominal pain, and fever. HISTORY OF PRESENT ILLNESS: It began on 05/15/2019. The patient had dialysis on 05/14/2019. The patient states he awoke on 05/15/2019 with right lower quadrant abdominal pain. The patient then began to experience nausea and vomiting. The patient states he vomited "several times." The patient denies hematemesis. The patient also complains of right hand pain and swelling. The patient presented to [place] emergency room. The patient is found to have fever of 103 degrees Fahrenheit. The patient was admitted with nausea, vomiting, and abdominal pain to rule out acute appendicitis. REVIEW OF SYSTEMS: CONSTITUTIONAL: The patient denies weight loss or weight gain. The patient complains of fever as above. HEENT: The patient denies ear or throat pain. The patient denies headache. CARDIOVASCULAR: The patient denies palpitations or chest pain. CHEST: The patient denies wheezes or shortness of breath. ABDOMEN: The patient complains of nausea, vomiting, and right lower quadrant abdominal pain as above. The patient denies constipation or diarrhea. GENITOURINARY: The patient denied dysuria or increased frequency of urination. NEUROMUSCULAR: The patient denies seizures or generalized weakness. PAST MEDICAL HISTORY: Significant for: 1. Diabetes, type 2. 2. End-stage renal disease, on hemodialysis every Tuesday, Tuesday, Tuesday. 3. Hypertension. 4. Gastroparesis. PAST SURGICAL HISTORY: Significant for: 1. Partial gastrectomy in 2011. 2. Laparoscopic cholecystectomy in 2009. 3. Nasal septal fracture repair. 4. AV graft for dialysis in the right femoral vein. 5. AV graft of the right femoral vein/artery for dialysis. CURRENT MEDICATIONS: 1. Calcium acetate 667 mg p.o. daily. 2. Sensipar 30 mg p.o. twice daily. 3. Clonidine 0.1 mg p.o. q.6 h. p.r.n. 4. Novolin sliding scale with regular insulin. 5. Metoprolol 100 mg p.o. daily. ALLERGIES: To morphine. SOCIAL HISTORY: The patient is single and lives with his adult daughter. The patient denies tobacco or alcohol use. PHYSICAL EXAMINATION: VITAL SIGNS: Temperature 99.9, respirations 18, pulse 95, blood pressure 129/61. GENERAL: The patient is a well-developed and well-nourished male, in no apparent distress. HEENT: Eyes, pupils are equal and responsive to light and accommodation. Extraocular movements are intact. NECK: Supple without lymphadenopathy. CHEST: Lungs are clear to auscultation bilaterally without wheezes or rales. CARDIOVASCULAR: Regular rhythm and rate. S1, S2 are normal without murmurs, rubs, or gallops. ABDOMEN: Soft, nontender, and nondistended. Positive bowel sounds. No evidence of hepatosplenomegaly. Currently, no rebound or guarding noted. EXTREMITIES: Negative for clubbing, cyanosis, or edema. RECTAL/GENITAL: Refused. NEUROLOGIC: Cranial nerves II through XII are grossly intact without focal deficits. Motor strength is 5/5 bilaterally. Deep tendon reflexes are 2+ plantar LABORATORY STUDIES: WBC 5.4, hemoglobin 11.9, hematocrit 35.3, platelets 162,000. Sodium 138, potassium 5.4, chloride 99, CO2 20, BUN 34, creatinine 6.4, glucose 218. A CT scan of the abdomen and pelvis revealed a distended stool-filled rectum consistent with fecal impaction. ASSESSMENT: This is a 44-year-old male. 1. Abdominal pain. 2. Nausea with vomiting. 3. Fever. 4. Fecal impaction. 5. Diabetes, type 2. 6. End-stage renal disease. 7. Hypertension. 8. Gastroparesis. TREATMENT: 1. Nausea/vomiting/abdominal pain/fecal impaction. A Gastroenterology consultation has been obtained with Dr. Chris Lee. We will follow recommendations of Gastroenterology. 2. Diabetes, type 2. NovoLog sliding scale has been instituted. 3. End-stage renal disease. The patient is status post dialysis on 05/14/2019. A Nephrology consultation has been obtained with Dr. Leal. We will follow recommendations of Nephrology. 4. Hypertension. 5. History of gastroparesis. Greg Kellogg, M.D. DR: COREY JOB#: [id number] CC:
[2019-05-16] MEDS: Sensipar 30mg Tab ORAL SCH (18:09)
[2019-05-16] MEDS: Docusate 100mg cap ORAL SCH (18:10)
--- NOTE | 2019-05-16 18:13 | NUR ---
NURSE NOTES: Held Clonidine for 1800 medication because patient's systolic pressure is 111.
--- NOTE | 2019-05-16 19:27 | NUR ---
HAND-OFF: Report given to FRANCISCO Mason. Plan of care endorsed. Patient's stable.
--- NOTE | 2019-05-16 19:32 | NUR ---
NURSE NOTES: Received report from Armando Jernigan RN. patient in bed AAO X 4 with no complaints of acute pain or discomfort noted. Kept clean, dry, and comfortable in bed. IV line intact and patent, on continuous cardiac monitoring per protocol. Patient ambulates to the bathroom with minimal assistance. Safety precaution in place; siderails X2 up, call light within reach, bed in lowest position, brakes and alarm on at all times. Needs and wants anticipated and attended, will continue plan of care and monitor for any changes noted. HD earlier today with 2L out New orders for stool softener active
[2019-05-16 20:00] VITALS: BP 140/70
[2019-05-16] MEDS ORDERED: Miralax 17gm pkt ORAL SCH (21:00)
[2019-05-17] VITALS: BP 126/66
[2019-05-17] MEDS: DiphenhydrAMINE 50mg/ml Inj IVP PRN ×3 (00:56→12:01)
[2019-05-17] MEDS: HYDROmorphone 2mg tab ORAL PRN ×3 (00:57→10:45)
--- NOTE | 2019-05-17 02:50 | NUR ---
HAND-OFF: Report given to Sp Birch RN. Patient in bed asleep with no S/S of distress noted. Endorsed plan of care.
--- NOTE | 2019-05-17 02:52 | NUR ---
Received report from Marlon SINGH. Pt is calm and comfortable. Pt is sleeping in the bed w.o any distress. Bed alarm is on. Call light is within reach.
[2019-05-17] MEDS: Calcium Acetate 667mg Tab ORAL SCH ×2 (06:22→12:01)
[2019-05-17] MEDS: NovoLOG Insulin Flexpen SUBQ SCH ×2 (06:27→12:03)
--- NOTE | 2019-05-17 07:12 | NUR ---
HAND-OFF: Report given to Hollie SINGH.
--- NOTE | 2019-05-17 07:14 | NUR ---
NURSE NOTES: Nurse report given by FRANCISCO Velasco. Patient's awake and ambulating. Complains of pain, Nurse jarek will give pain medication. Otherwise, no s/s of distress or SOB. IV is saline locked, patent and asymptomatic. All needs met. Bed low and locked, call light within reach, side rails x 2. Will continue to monitor.
[2019-05-17 08:00] VITALS: BP 126/55
[2019-05-17] MEDS: Sensipar 30mg Tab ORAL SCH (08:19)
[2019-05-17] MEDS: Docusate 100mg cap ORAL SCH (08:20)
[2019-05-17 08:36] LABS: BASOPHILS % (AUTO) 1.1 % (0.0-2.0); EOSINOPHILS % (AUTO) 4.5 % (0.0-3.0); HEMOGLOBIN 10.2 G/DL (14.2-18.0); LYMPHOCYTES % (AUTO) 22.2 % (20.0-45.0); MEAN CORPUSCULAR VOLUME 91 FL (80-99); MONOCYTES % (AUTO) 7.4 % (1.0-10.0); NEUTROPHILS % (AUTO) 64.9 % (45.0-75.0); PLATELET COUNT 181 K/UL (150-450); RED BLOOD COUNT 3.62 M/UL (4.70-6.10); WHITE BLOOD COUNT 5.5 K/UL (4.8-10.8)
[2019-05-17 08:56] LABS: ALANINE AMINOTRANSFERASE 16 U/L (12-78); ALBUMIN 2.7 G/DL (3.4-5.0); ALBUMIN/GLOBULIN RATIO 0.5 (1.0-2.7); ALKALINE PHOSPHATASE 199 U/L (46-116); ANION GAP 12 mmol/L (5-15); ASPARTATE AMINO TRANSFERASE 23 U/L (15-37); BILIRUBIN,TOTAL 0.7 MG/DL (0.2-1.0); BLOOD UREA NITROGEN 45 mg/dL (7-18); CALCIUM 7.4 MG/DL (8.5-10.1); CARBON DIOXIDE 26 MMOL/L (21-32); CHLORIDE 100 MMOL/L (98-107); CHOLESTEROL 98 MG/DL (< 200); CREATINE KINASE 95 U/L (26-308); CREATININE 6.5 MG/DL (0.55-1.30); FERRITIN 772 NG/ML (8-388); GAMMA GLUTAMYL TRANSPEPTIDASE 35 U/L (5-85); HDL CHOLESTEROL 46 MG/DL (40-60); POTASSIUM 4.6 MMOL/L (3.5-5.1); SODIUM 138 MMOL/L (136-145); TRIGLYCERIDES 83 MG/DL (30-150)
[2019-05-17] MEDS ORDERED: Calcium Acetate 667mg Tab ORAL SCH (09:00)
[2019-05-17 09:36] LABS: % IRON SATURATION 26 % (15-50); IRON 29 ug/dL (50-175); TOTAL IRON BINDING CAPACITY 112 ug/dL (250-450)
--- NOTE | 2019-05-17 10:00 | NUR ---
NURSE NOTES: Spoke to Lien from [facility] office to confirm patient's going to have dialysis tomorrow, Tuesday05/18/2019 at [facility] [place]. It is confirmed.
[2019-05-17 10:29] LABS: APPEARANCE,URINE SLIGHTLY CLOUDY; BILIRUBIN, URINE NEGATIVE (NEGATIVE); GLUCOSE, URINE (UA) 2+ (NEGATIVE); KETONES,URINE NEGATIVE (NEGATIVE); LEUKOCYTE ESTERASE ,URINE 3+ (NEGATIVE); NITRITE,URINE NEGATIVE (NEGATIVE); PH,URINE 7 (4.5-8.0); PROTEIN,URINE 4+ (NEGATIVE); UROBILINOGEN,URINE NORMAL MG/DL (0.0-1.0)
[2019-05-17 10:35] LABS: COLOR,URINE YELLOW
--- NOTE | 2019-05-17 10:49 | Pulmonology Progress Note ---
Assessment/Plan Problems: (1) Persistent vomiting (2) Low grade fever (3) Colitis (4) Constipation (5) ESRF (end stage renal failure) (6) Diabetes mellitus (7) History of hypertension (8) S/P partial gastrectomy Assessment/Plan improving eating well HD got yesterday, 2 liters removed. pt wants to go home today Subjective ROS Limited/Unobtainable: No Interval Events: eating well, asymptomatic Allergies: Coded Allergies: MORPHINE (Verified Allergy, Unknown, 05/15/19) Objective Last 24 Hour Vital Signs Date Time Temp Pulse Resp B/P (MAP) Pulse Ox O2 Delivery O2 Flow Rate FiO2 05/17/19 09:00 Room Air 05/17/19 08:20 66 126/55 05/17/19 08:00 97.2 66 20 126/55 (78) 99 05/17/19 08:00 71 05/17/19 06:22 126/71 05/17/19 04:00 73 05/17/19 00:00 126/66 05/17/19 00:00 98.0 76 20 126/66 (86) 97 05/16/19 21:00 Room Air 05/16/19 20:41 81 140/70 05/16/19 20:00 98.7 81 20 140/70 (93) 98 05/16/19 20:00 78 05/16/19 18:00 111/60 05/16/19 16:00 72 05/16/19 16:00 98.9 73 20 111/60 (77) 99 05/16/19 12:00 99.0 79 20 104/56 (72) 99 05/16/19 12:00 72 Intake and Output 05/16/19 05/17/19 18:59 06:59 Intake Total 780 ml 320 ml Balance 780 ml 320 ml Intake Oral 780 ml 320 ml # Voids 3 # Bowel Movements 1 General Appearance: WD/WN HEENT: normocephalic, atraumatic Respiratory/Chest: chest wall non-tender, lungs clear Cardiovascular: normal peripheral pulses, normal rate Abdomen: normal bowel sounds, soft, non tender Genitourinary: normal external genitalia Skin: no rash Neurologic/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 Lymphatic: no neck adenopathy Microbiology Date/Time Source Procedure Growth Status 05/15/19 23:30 Rectum Received Laboratory Tests 05/17/19 07:55: White Blood Count 5.5, Red Blood Count 3.62L, Hemoglobin 10.2L, Hematocrit 33.0L , Mean Corpuscular Volume 91, Mean Corpuscular Hemoglobin 28.1, Mean Corpuscular Hemoglobin Concent 30.9L, Red Cell Distribution Width 16.0H, Platelet Count 181, Mean Platelet Volume 6.5, Neutrophils (%) (Auto) 64.9, Lymphocytes (%) (Auto) 22.2, Monocytes (%) (Auto) 7.4, Eosinophils (%) (Auto) 4.5H, Basophils (%) (Auto) 1.1, Sodium Level 138, Potassium Level 4.6, Chloride Level 100, Carbon Dioxide Level 26, Anion Gap 12, Blood Urea Nitrogen 45H, Creatinine 6.5H, Estimat Glomerular Filtration Rate 9.3, Glucose Level 88, Hemoglobin A1c 6.7H, Uric Acid 3.3, Calcium Level 7.4L, Phosphorus Level 5.0H, Magnesium Level 2.2, Iron Level 29L, Total Iron Binding Capacity 112L, Percent Iron Saturation 26, Unsaturated Iron Binding 83L, Ferritin 772H, Total Bilirubin 0.7, Gamma Glutamyl Transpeptidase 35, Aspartate Amino Transf (AST/ SGOT) 23, Alanine Aminotransferase (ALT/SGPT) 16, Alkaline Phosphatase 199H, Total Creatine Kinase 95, C-Reactive Protein, Quantitative 16.4H, Pro-B-Type Natriuretic Peptide 17465F, Total Protein 7.7, Albumin 2.7L, Globulin 5.0, Albumin/Globulin Ratio 0.5L, Triglycerides Level 83, Cholesterol Level 98, LDL Cholesterol 40, HDL Cholesterol 46, Cholesterol/HDL Ratio 2.1L, Lipase 42L, Vitamin B12 Level 1090H, Folate 20.9, Thyroid Stimulating Hormone (TSH) 1.644 05/17/19 10:00: Urine Color Yellow, Urine Appearance Slightly cloudy, Urine pH 7, Urine Specific Ocate 1.010, Urine Protein 4+H, Urine Glucose (UA) 2+H, Urine Ketones Negative, Urine Blood 2+H, Urine Nitrite Negative, Urine Bilirubin Negative, Urine Urobilinogen Normal, Urine Leukocyte Esterase 3+H, Urine RBC 2- 4H, Urine WBC 40-60H, Urine Squamous Epithelial Cells Occasional, Urine Bacteria Occasional, Urine Opiates Screen [Pending], Urine Barbiturates Screen [ Pending], Phencyclidine (PCP) Screen [Pending], Urine Amphetamines Screen [ Pending], Urine Benzodiazepines Screen [Pending], Urine Cocaine Screen [Pending] , Urine Marijuana (THC) Screen [Pending] Current Medications Medications (Trade) Dose Ordered Sig/Marie Route PRN Reason Start Time Stop Time Status Last Admin Dose Admin Calcium Acetate (Phoslo) 667 mg TIAC ORAL 05/16/19 06:30 06/15/19 06:29 05/17/19 06:22 Cinacalcet (Sensipar) 30 mg BID ORAL 05/16/19 18:00 06/15/19 17:59 05/17/19 08:19 Clonidine HCl (Catapres Tab) 0.1 mg EVERY 6 HOURS ORAL 05/16/19 18:00 06/15/19 11:59 05/17/19 06:22 Clonidine HCl (Catapres Tab) 0.1 mg Q4H PRN ORAL For High Blood Pressure 05/16/19 01:15 06/15/19 01:14 Dextrose (Dextrose 50%) 25 ml Q30M PRN IV Hypoglycemia 05/16/19 01:15 06/15/19 01:14 Dextrose (Dextrose 50%) 50 ml Q30M PRN IV Hypoglycemia 05/16/19 01:15 06/15/19 01:14 Diphenhydramine HCl (Benadryl) 25 mg Q4H PRN IVP Itching 05/16/19 01:15 06/15/19 01:14 05/17/19 07:17 Docusate Sodium (Colace) 100 mg THREE TIMES A DAY ORAL 05/16/19 18:00 06/15/19 17:59 05/17/19 08:20 Hydromorphone HCl (Dilaudid) 2 mg Q4H PRN ORAL For Pain 05/16/19 01:15 05/23/19 01:14 05/17/19 10:45 Insulin Aspart (NovoLOG) BEFORE MEALS AND HS SUBQ 05/16/19 06:30 06/15/19 06:29 05/17/19 06:27 Iohexol (OMNIPAQUE-300 100ml) 100 ml NOW PRN INJ Radiology Procedure 05/15/19 16:15 05/17/19 16:12 Metoclopramide HCl (Reglan) 10 mg Q6H PRN IVP Nausea & Vomiting 05/16/19 12:33 06/15/19 12:32 Metoprolol Tartrate (Lopressor) 100 mg EVERY 12 HOURS ORAL 05/16/19 09:00 06/15/19 08:59 05/17/19 08:20 Mineral Oil (Mineral Oil) 30 ml DAILYPRN PRN ORAL Constipation 05/16/19 12:45 06/15/19 12:44 Polyethylene Glycol (Miralax) 17 gm BEDTIME ORAL 05/16/19 21:00 06/15/19 20:59 05/16/19 20:41 Cristobal Ordonez MD May 17, 2019 10:49
[2019-05-17 12:00] VITALS: BP 112/58
--- NOTE | 2019-05-17 13:00 | NUR ---
NURSE NOTES: Patient's discharged per Dr. Ordonez's order. Patient's in stable condition, ambulates with cane, AO x 4, denies pain, no s/s of distress or SOB. Patient's belonging list and discharge document went over with patient and signed by patient and nurse at bedside. space and missile operations spacelift and IV are removed, ID band discarded properly. Patient's mother picked patient up. Nurse walked patient out of the hospital at 1300. Charge nurse and cardiac cath lab radiology technologist aware.
--- NOTE | 2019-05-17 13:03 | GI Progress Note ---
Assessment/Plan Problems: (1) S/P partial gastrectomy ICD Codes: Z90.3 - Acquired absence of stomach [part of] SNOMED: 55744004, 88503620, 428351620304604 (2) Gastroparesis ICD Codes: K31.84 - Gastroparesis SNOMED: 509751920 (3) Fecal impaction ICD Codes: K56.41 - Fecal impaction SNOMED: 16490960 (4) Colitis ICD Codes: K52.9 - Noninfective gastroenteritis and colitis, unspecified SNOMED: 86109516 (5) Constipation ICD Codes: K59.00 - Constipation, unspecified SNOMED: 08909393 (6) Persistent vomiting ICD Codes: R11.15 - Cyclical vomiting syndrome unrelated to migraine SNOMED: 746313239 Status: stable Status Narrative Discussed with Dr. Lee. Assessment/Plan Abdominal pelvis CT reviewed Distended stool-filled rectum, concerning for rectal fecal impaction. Stool filled featureless sigmoid colon, could indicate colitis/proctitis. But filled proximal colon, could indicate diarrheal illness. History of partial gastrectomy patient had multiple BM okay for DC per GI standpoint Medical management for constipation Bowel regimen of Colace and MiraLAX Advance to renal diet Zofran as needed follow labs The patient was seen and examined at bedside and all new and available data was reviewed in the patients chart. I agree with the above findings, impression and plan. (Patient seen earlier today. Signature stamp does not reflect patient encounter time.). - Chris Lee MD Subjective Gastrointestinal/Abdominal: Reports: no symptoms Objective Last 24 Hour Vital Signs Date Time Temp Pulse Resp B/P (MAP) Pulse Ox O2 Delivery O2 Flow Rate FiO2 05/17/19 12:00 112/58 05/17/19 12:00 98.2 80 19 112/58 (76) 98 05/17/19 12:00 65 05/17/19 11:15 97.2 05/17/19 09:00 Room Air 05/17/19 08:20 66 126/55 05/17/19 08:00 97.2 66 20 126/55 (78) 99 05/17/19 08:00 71 05/17/19 06:22 126/71 05/17/19 04:00 73 05/17/19 00:00 126/66 10/17/19 00:00 98.0 76 20 126/66 (86) 97 05/16/19 21:00 Room Air 05/16/19 20:41 81 140/70 05/16/19 20:00 98.7 81 20 140/70 (93) 98 05/16/19 20:00 78 05/16/19 18:00 111/60 05/16/19 16:00 72 05/16/19 16:00 98.9 73 20 111/60 (77) 99 Intake and Output 05/16/19 05/17/19 18:59 06:59 Intake Total 780 ml 320 ml Balance 780 ml 320 ml Intake Oral 780 ml 320 ml # Voids 3 # Bowel Movements 1 Laboratory Tests Test 05/17/19 07:55 05/17/19 10:00 White Blood Count 5.5 K/UL (4.8-10.8) Red Blood Count 3.62 M/UL (4.70-6.10) L Hemoglobin 10.2 G/DL (14.2-18.0) L Hematocrit 33.0 % (42.0-52.0) L Mean Corpuscular Volume 91 FL (80-99) Mean Corpuscular Hemoglobin 28.1 PG (27.0-31.0) Mean Corpuscular Hemoglobin Concent 30.9 G/DL (32.0-36.0) L Red Cell Distribution Width 16.0 % (11.6-14.8) H Platelet Count 181 K/UL (150-450) Mean Platelet Volume 6.5 FL (6.5-10.1) Neutrophils (%) (Auto) 64.9 % (45.0-75.0) Lymphocytes (%) (Auto) 22.2 % (20.0-45.0) Monocytes (%) (Auto) 7.4 % (1.0-10.0) Eosinophils (%) (Auto) 4.5 % (0.0-3.0) H Basophils (%) (Auto) 1.1 % (0.0-2.0) Sodium Level 138 MMOL/L (136-145) Potassium Level 4.6 MMOL/L (3.5-5.1) Chloride Level 100 MMOL/L (98-107) Carbon Dioxide Level 26 MMOL/L (21-32) Anion Gap 12 mmol/L (5-15) Blood Urea Nitrogen 45 mg/dL (7-18) H Creatinine 6.5 MG/DL (0.55-1.30) H Estimat Glomerular Filtration Rate 9.3 mL/min (>60) Glucose Level 88 MG/DL (74-106) Hemoglobin A1c 6.7 % (4.3-6.0) H Uric Acid 3.3 MG/DL (2.6-7.2) Calcium Level 7.4 MG/DL (8.5-10.1) L Phosphorus Level 5.0 MG/DL (2.5-4.9) H Magnesium Level 2.2 MG/DL (1.8-2.4) Iron Level 29 ug/dL (50-175) L Total Iron Binding Capacity 112 ug/dL (250-450) L Percent Iron Saturation 26 % (15-50) Unsaturated Iron Binding 83 ug/dL (112-346) L Ferritin 772 NG/ML (8-388) H Total Bilirubin 0.7 MG/DL (0.2-1.0) Gamma Glutamyl Transpeptidase 35 U/L (5-85) Aspartate Amino Transf (AST/SGOT) 23 U/L (15-37) Alanine Aminotransferase (ALT/SGPT) 16 U/L (12-78) Alkaline Phosphatase 199 U/L (46-116) H Total Creatine Kinase 95 U/L (26-308) C-Reactive Protein, Quantitative 16.4 mg/dL (0.00-0.90) H Pro-B-Type Natriuretic Peptide 92051 pg/mL (0-125) H Total Protein 7.7 G/DL (6.4-8.2) Albumin 2.7 G/DL (3.4-5.0) L Globulin 5.0 g/dL Albumin/Globulin Ratio 0.5 (1.0-2.7) L Triglycerides Level 83 MG/DL (30-150) Cholesterol Level 98 MG/DL (< 200) LDL Cholesterol 40 mg/dL (<100) HDL Cholesterol 46 MG/DL (40-60) Cholesterol/HDL Ratio 2.1 (3.3-4.4) L Lipase 42 U/L (73-393) L Vitamin B12 Level 1090 PG/ML (193-986) H Folate 20.9 NG/ML (8.6-58.9) Thyroid Stimulating Hormone (TSH) 1.644 uiU/mL (0.358-3.740) Urine Color Yellow Urine Appearance Slightly cloudy Urine pH 7 (4.5-8.0) Urine Specific [place] 1.010 (1.005-1.035) Urine Protein 4+ (NEGATIVE) H Urine Glucose (UA) 2+ (NEGATIVE) H Urine Ketones Negative (NEGATIVE) Urine Blood 2+ (NEGATIVE) H Urine Nitrite Negative (NEGATIVE) Urine Bilirubin Negative (NEGATIVE) Urine Urobilinogen Normal MG/DL (0.0-1.0) Urine Leukocyte Esterase 3+ (NEGATIVE) H Urine RBC 2-4 /HPF (0 - 0) H Urine WBC 40-60 /HPF (0 - 0) H Urine Squamous Epithelial Cells Occasional /LPF Urine Bacteria Occasional /HPF (NONE) Urine Opiates Screen Positive (NEGATIVE) H Urine Barbiturates Screen Negative (NEGATIVE) Phencyclidine (PCP) Screen Negative (NEGATIVE) Urine Amphetamines Screen Negative (NEGATIVE) Urine Benzodiazepines Screen Negative (NEGATIVE) Urine Cocaine Screen Negative (NEGATIVE) Urine Marijuana (THC) Screen Negative (NEGATIVE) Height (Feet): 5 Height (Inches): 6.00 Weight (Pounds): 145 General Appearance: WD/WN, no apparent distress, alert Cardiovascular: normal rate Respiratory/Chest: normal breath sounds, no respiratory distress Abdominal Exam: normal bowel sounds, non tender, soft Extremities: normal range of motion, non-tender Georges Resendez NP May 17, 2019 13:03
--- NOTE | 2019-05-19 13:25 | Cardiology Report ---
APPROVED REPORT EKG Measurement Heart [id number] Sinus tachycardia Right bundle branch block Abnormal ECG
--- NOTE | 2019-05-19 16:24 | Discharge Summary ---
Discharge Summary Discharge Summary _ DATE OF ADMISSION: 05/15/2019 DATE OF DISCHARGE: 05/17/2019 DISCHARGED BY: Dr. Melendez REASON FOR ADMISSION: 44 years old male with past medical history of end-stage renal disease, on hemodialysis Tuesday, Tuesday ,Tuesday, gastroparesis, status post partial gastrectomy, presented to emergency department due to abdominal pain. Patient reported several episodes of persistent postprandial emesis, starting the day prior to presentation. He felt feverish and had temperature of 103 at his primary medical doctor in the office earlier . He was sent to emergency room for evaluation. Patient reported periumbilical , suprapubic and right lower quadrant pain. He reported constipation. He still was able to make a small amount of urine, and denied hematuria or dysuria . No flank pain. No chest pain or shortness of breath. No cough. Upon evaluation patient had low-grade fever 99.9. Laboratory work-up revealed no leukocytosis , hemoglobin 11.1, hematocrit 35.3. Potassium 5.4. BUN 34, creatinine 6.4, consistent with known history of end-stage renal disease. Glucose 218. Stable LFT and lipase. EKG revealed sinus tachycardia, no acute ischemic changes. CT of the abdomen and pelvis demonstrated distended stool-filled rectum, concerning for rectal fecal impaction. Mild bladder wall thickening, possibly indicative of cystitis. No definite ductal dilatation. Atrophic kidneys, consistent with medical renal disease. Evidence of prior stenting of the right iliac vein , appeared to be patent. In emergency department patient received 1 L of fluid , medicated with Zofran, received analgesia and admitted for further management. CONSULTANTS: hospitalist Dr. Ordonez woolen tester Dr. Leal GI specialist Dr Lee [facility] COURSE: Patient admitted and started on the IV fluid and empiric antibiotic. Symptomatic treatment provided. Pain management was addressed. Antiemetic provided as needed. GI specialist closely followed. CT scan findings were concerning for rectal fecal impaction. Patient also had a history of partial gastrectomy. Bowel regimen instituted. Patient subsequently had multiple bowel movement. Continue medical management for constipation at home with Colace and MiraLAX. Patient was able to tolerate diet. Abdominal pain resolved. Urinalysis revealed pyuria, bur urine culture revealed no evidence of growth. CXR was negative. Fevers resolved, no leukocytosis, no evidence of infection. Hemodialysis was arranged by woolen tester with close monitoring of volumes, renal parameters and electrolytes. Blood pressure was managed with current medication regimen and remained stable. Blood sugar was managed with sliding scale of insulin, Hemoglobin A1c at goal. Bowel regimen instituted as per GI specialist. Blood sugar was managed with sliding scale of insulin. Patient clinically stabilized. Symptoms improved. Patient was ready for discharge home. FINAL DIAGNOSES: Constipation Fecal impaction Persistent vomiting Gastroparesis Possible colitis Status post partial gastrectomy Diabetes mellitus ESRD, on hemodialysis Hypertension DISCHARGE MEDICATIONS: See Medication Reconciliation list. DISCHARGE INSTRUCTIONS: Patient was discharged home. Follow up with primary care provider in one week. I have been assigned to dictate discharge summary for this account. I was not involved in the patient's management. Alpa Soria NP May 19, 2019 16:24
== END 2019-05-17 13:00 | disposition home or self-care (01) | DRG 388 ==
LOC: EMR 16:00 → 2E 20:47 → EDBEDREQ 21:12
PROC: 5A1D70Z Performance of Urinary Filtration, Intermittent, Less than 6 Hours Per Day (ICD-10-PCS; principal; 2019-05-16)
DX: K56.41 Fecal impaction (principal); N18.6 End stage renal disease; I12.0 Hypertensive chronic kidney disease with stage 5 chronic kidney disease or end stage renal disease; K52.9 Noninfective gastroenteritis and colitis, unspecified; E11.22 Type 2 diabetes mellitus with diabetic chronic kidney disease; Z99.2 Dependence on renal dialysis; Z90.3 Acquired absence of stomach [part of]; Z88.6 Allergy status to analgesic agent; Z79.4 Long term (current) use of insulin; R11.15 Cyclical vomiting syndrome unrelated to migraine
CPT/HCPCS: 36415; 71045; 74177; 80048; 80053; 80061; 80307; 81001; 82550; 82607; 82728; 82746; 82962; 82977; 83036; 83540; 83550; 83605; 83690; 83735; 83880; 84100; 84443; 84550; 85025; 85610; 85730; 86140; 87081; 87086; 87340; 93005; 93306; 96374; 96375; 96376; 99285; J1815; J2405; J2765; J7030